=== PATIENT | male | born 1970 | race African-American/Black ===

== ENCOUNTER 2023-02-03 11:07 | Emergency (ER) | payer MEDICARE, OTHER ==
[~2023-02-03] VITALS: Ht 177.8 cm; Wt 90.9 kg
[~2023-02-03 11:07] MED LIST: AMLO-257 PO; BENZ1TAB84 PO; DIVA-112 PO; EZET10TA57 PO; FLUV50 PO; GABA-1201 PO; HYDR25TA PO; LEVO200 PO; METO25 PO; PROP20TA18 PO; RISP3TAB35 PO
[2023-02-03] MEDS ORDERED: CLON-595 PO ×3 (11:25→12:24)
[2023-02-03] MEDS ORDERED: CLON-592 PO ×3 (11:25→12:24)
[2023-02-03 11:26] VITALS: BP 137/67; PULSE 88; RESP 18; TEMP 98.3
== END 2023-02-03 12:39 | disposition admitted as inpatient to this hospital (09) ==
LOC: EMS 11:07
DX: F81.9 Developmental disorder of scholastic skills, unspecified (principal); I10 Essential (primary) hypertension; F20.9 Schizophrenia, unspecified; E05.90 Thyrotoxicosis, unspecified without thyrotoxic crisis or storm
CPT/HCPCS: 99285; Z7502

== ENCOUNTER 2023-03-24 14:21 | Emergency (ER) | payer MEDICARE, OTHER ==
[~2023-03-24] VITALS: Ht 172.7 cm; Wt 113.6 kg
[~2023-03-24 14:21] MED LIST changes: +CLON-592 PO; +CLON-595 PO
[2023-03-24 15:15] LABS: BASOPHILS % (AUTO) 0.5 % (0.0-2.0); EOSINOPHILS % (AUTO) 0.7 % (1.0-6.0); HEMATOCRIT 37.7 % (41-53); HEMOGLOBIN 12.4 g/dL (13.5-17.5); LYMPHOCYTES # (AUTO) 1.5 K/uL (1.0-4.8); LYMPHOCYTES % (AUTO) 15.8 % (22.0-44.0); MEAN CORPUSCULAR HEMOGLOBIN 31.6 pg (26.0-34.0); MEAN CORPUSCULAR VOLUME 96 fL (80-100); MONOCYTES % (AUTO) 10.7 % (2.0-9.0); NEUTROPHILS # (AUTO) 6.9 K/uL (1.8-7.7); NEUTROPHILS % (AUTO) 72.3 % (40.0-70.0); RED BLOOD CELL COUNT(AUTO) 3.94 MIL/uL (4.50-5.90); RED CELL DISTRIBUTION WIDTH 14.4 % (11.5-14.5); WHITE BLOOD COUNT (AUTO) 9.5 K/uL (4.5-11.0)
[2023-03-24 15:20] LABS: ANION GAP 6 mmol/L (8-16); CALCIUM, TOTAL 9.7 mg/dL (8.8-10.5); CARBON DIOXIDE 30 mmol/L (22-29); CHLORIDE 101 mmol/L (98-107); CREATININE 1.38 mg/dL (0.60-1.30); GLOMERULAR FILTR. RATE CALC > 60 mL/min (>60); GLUCOSE,RANDOM 126 mg/dL (70-110); POTASSIUM 4.3 mmol/L (3.5-5.1); SODIUM SERUM 137 mmol/L (136-145); UREA NITROGEN, BLOOD 15 mg/dL (7-18)
[2023-03-24 15:27] VITALS: TEMP 98
[2023-03-24 15:28] LABS: TROPONIN I-HIGH SENSITIVITY 9 ng/L (<76)
[2023-03-24 15:29] LABS: ALANINE AMINOTRANSFERASE 19 U/L (12-78); ALBUMIN 3.4 g/dL (3.4-5.0); ALKALINE PHOSPHATASE 53 U/L (46-116); ASPARTATE AMINOTRANSFERASE 23 U/L (15-37); BILIRUBIN,TOTAL 0.4 mg/dL (0.1-1.0); CREATINE KINASE, TOTAL ONLY 466 U/L (39-308); PLATELET COUNT (AUTO) 204 K/uL (150-450); RBC MORPHOLOGY COMMENT NORMAL RBC MORPH; TOTAL PROTEIN, SERUM 7.6 g/dL (6.4-8.2); VALPROIC ACID 73 mcg/mL (50-100)
[2023-03-24 15:31] LABS: LACTIC ACID 2.1 mmol/L (0.4-2.0)
[2023-03-24 15:32] LABS: B-TYPE NATRIURETIC PEPTIDE 35 pg/mL (0-100)
[2023-03-24 15:38] LABS: AMMONIA < 10 umol/L (11-32)
[2023-03-24 15:41] LABS: GLUCOMETER DEV NAME(LOC) ER.6; GLUCOSE,POINT OF CARE 80 MG/DL (70-110)
[2023-03-24] MEDS ORDERED: SODIUM CHLORIDE 0.9% 1,000 ML IV ONE (15:45)
[2023-03-24] MEDS ORDERED: TAMS0.4C94 PO (15:49)
[2023-03-24] MEDS ORDERED: OXYB10TA42 PO (15:49)
[2023-03-24] MEDS ORDERED: HYDR12.54 PO (15:49)
[2023-03-24] MEDS ORDERED: IBUP-2070 PO (15:49)
[2023-03-24] MEDS ORDERED: PIOG30TA70 PO (15:49)
[2023-03-24] MEDS ORDERED: DIVA500T53 PO (15:49)
[2023-03-24] MEDS ORDERED: PRAV20TA4 PO (15:49)
[2023-03-24] MEDS ORDERED: RISP2TAB45 PO (15:49)
[2023-03-24] MEDS ORDERED: QUET200T30 PO (15:49)
[2023-03-24] MEDS ORDERED: METF-446 PO (15:49)
[2023-03-24] MEDS ORDERED: GABA600T10 PO (15:49)
[2023-03-24] MEDS ORDERED: LISI5TAB21 PO (15:49)
[2023-03-24] MEDS ORDERED: CHOL500045 PO (15:53)
[2023-03-24] MEDS ORDERED: DIVA-85 PO (15:53)
[2023-03-24] MEDS ORDERED: SITA100 PO (15:53)
[2023-03-24 15:55] VITALS: BP 146/76; PULSE 73; RESP 15
[2023-03-24 16:37] LABS: COVID AG,FIA SOURCE NASAL SWAB
[2023-03-24 16:56] LABS: SARS-COV2 (COVID) ANTIGEN,FIA Negative (Negative)
[2023-03-24 17:06] LABS: APPEARANCE,URINE CLEAR (CLEAR); BILIRUBIN,URINE NEGATIVE (NEGATIVE); COLOR,URINE LIGHT YELLOW (YELLOW); GLUCOSE, URINE (UA) NEGATIVE (NEGATIVE); KETONES,URINE NEGATIVE (NEGATIVE); LEUKOCYTE ESTERASE ,URINE NEGATIVE (NEGATIVE); NITRATE,URINE NEGATIVE (NEGATIVE); OCCULT BLOOD,URINE NEGATIVE (NEGATIVE); PROTEIN,URINE TRACE mg/dL (NEGATIVE); SPECIFIC GRAVITIY, URINE 1.012 (1.003-1.030); UROBILINOGEN,URINE <=1.0 mg/dL (<=1.0)
[2023-03-24 17:13] LABS: ALCOHOL, URINE DRUG SCREEN NEGATIVE (NEGATIVE); AMPHET/METH SCREEN,URINE NEGATIVE (NEGATIVE); BARBITURATE SCREEN, URINE NEGATIVE (NEGATIVE); BENZODIAZEPINES SCREEN,URINE NEGATIVE (NEGATIVE); CANNABINOID SCREEN,URINE NEGATIVE (NEGATIVE); COCAINE SCREEN,URINE NEGATIVE (NEGATIVE); METHADONE SCREEN, URINE NEGATIVE (NEGATIVE); OPIATE SCREEN,URINE NEGATIVE (NEGATIVE); PHENCYCLIDINE SCREEN,URINE NEGATIVE (NEGATIVE)
== END 2023-03-24 17:38 | disposition home or self-care (01) ==
LOC: EMS 14:26
DX: R53.83 Other fatigue (principal); I10 Essential (primary) hypertension; F20.9 Schizophrenia, unspecified; E05.90 Thyrotoxicosis, unspecified without thyrotoxic crisis or storm; Z20.822 Contact with and (suspected) exposure to COVID-19
CPT/HCPCS: 99285; 96360; 71045; 87426; 80053; 80164; 82140; 82550; 82962; 83605; 83880; 84484; 85025; 36415; 93005; 80307; 81003; J7030